=== PATIENT | male | born 1955 | race Caucasian/White ===

== ENCOUNTER → 2017-12-06 | Outpatient (CLI) | payer OTHER ==
--- NOTE | 2017-12-06 11:23 | US ---
EXAMINATION TYPE: US scrotum with doppler. Grayscale and color Doppler Duplex imaging performed of t tom scrotum. DATE OF EXAM: 12/06/2017 COMPARISON: NONE CLINICAL HISTORY: N50.9 Left testicular mass. EXAM MEASUREMENTS: TESTICLES: Right Testicle: 3.7 x 2.1 x 2.9 cm Left Testicle: 4.2 x 1.8 x 3.1 cm EPIDIDYMIS HEAD: Right Epididymis: 0.8 x 0.8 cm. Left Epididymis: not definitely seen cm. In area of left epi head there is a complex multiloculated cystic area measuring 3.1 x 2.2 x 2.9 cm Doppler performed to assess for testicular vascularity; good bilateral color flow and waveforms are s een. There is no evidence of testicular torsion. Presence of hydroceles: small amount of fluid surrounding bilateral testicles. IMPRESSION: 1. Multiloculated 3.1 cm left epididymal cyst. 2. Small bilateral hydroceles.
== END | disposition home or self-care (01) ==
LOC: RADUSWWP 10:52
PROVIDERS: ATTEND Family Medicine
DX: N50.3 Cyst of epididymis (principal); N43.3 Hydrocele, unspecified
CPT/HCPCS: 76870; 93975

== ENCOUNTER → 2022-04-28 | Outpatient (CLI) | payer MEDICARE ==
--- NOTE | 2022-04-28 14:28 | CT ---
EXAMINATION TYPE: CT abdomen pelvis wo con DATE OF EXAM: 04/28/2022 COMPARISON: None HISTORY: 66-year-old male N20.0, flank pain, kidney stone CT DLP: 485.4 mGycm. Automated exposure control for dose reduction was used. TECHNIQUE: Contiguous axial scanning of the abdomen and pelvis without IV contrast. Coronal and sagit [place] reconstructions performed. FINDINGS: Heart normal size without pericardial effusion. RCA coronary artery calcifications are present. Lung bases are clear without pleural effusion. The liver is mildly enlarged 18.9 cm. Otherwise, noncontrast appearance shows no gross abnormality. Noncontrast appearance of the gallbladder, adrenal glands, spleen, and pancreas shows no gross abnorm ality. Bilateral parapelvic cysts are suggested measuring up to 2.3 cm. On the right, there is a subtle 1.0 cm cortical hypodensity at the medial upper to mid pole, too smal l for accurate CT characterization, likely a cyst. No renal calculi or hydronephrosis is seen. No dilated small bowel, free fluid, or free air. Mild atherosclerotic calcifications infrarenal abdominal aorta and iliac arteries. Mild anne mesentery centrally and in the left side of the abdomen along with a few borderline to mil dly enlarged mesenteric lymph nodes measuring up to 1.2 cm. Refer to coronal image 27. Mild stool burden. Distal sigmoid diverticulosis. No pericolonic inflammatory change. Appendix not di scretely visualized. Bladder partially distended. Numerous pelvic phleboliths. Prostate gland shows central calcifications and is enlarged at 5.1 cm wide. No abnormal fluid collection in the pelvis. Some curvilinear density just behind the deep left inguinal ring, possible previous inguinal mesh rep air. No abnormal fluid collection the pelvis or pelvic adenopathy. Bones: Mild degenerative change at both hips and both SI joints. Hypertrophic facet arthropathy throughout. Grade 1 retrolisthesis L1-L2 and L2-L3. Mild degenerative disc disease, greatest at T12-L1 with a disc bulge mildly narrowing the spinal canal. No osseous dest ructive process seen. IMPRESSION: 1. No nephrolithiasis or hydronephrosis. 2. A nonspecific 1.0 cm cortical lesion medial right kidney (probable cyst) and suspected underlying parapelvic cysts in both kidneys measuring up to 2.3 cm. Six-month follow-up CT to ensure stability and a benign etiology. 3. Anne mesentery centrally may and left side of the abdomen with some associated borderline to mil dly enlarged mesenteric lymph nodes measuring up to 1.2 cm. Correlate for possible mesenteric pannicu litis. This should also be reassessed in 6 months as early lymphoma can have a similar appearance. 4. Prostatomegaly at 5.1 cm wide. Query prior left inguinal mesh repair.
== END | disposition home or self-care (01) ==
LOC: RADCTMAIN 13:58
PROVIDERS: ATTEND Family Medicine
DX: N40.0 Benign prostatic hyperplasia without lower urinary tract symptoms (principal)
CPT/HCPCS: 74176; 93005

== ENCOUNTER → 2022-05-20 | Outpatient (CLI) | payer MEDICARE ==
--- NOTE | 2022-05-20 09:54 | CA ---
Transthoracic Echo Report Name: Harry Peacock Age: 66 Gender: M : 1955 Exam Date: 05/20/2022 08:29 Exam Location: [facility] Ht (in): 68 Wt (lb): 190 Ordering Physician: Say Durant MD Attending/Referring Phys: Say Durant MD Animal Cruelty Investigation Supervisor Parul Hutchinson SERJIO Procedure CPT: Indications: I20.9 ANGINA PECTORIS, UNSPECIFIED Cardiac Hx: No hx of cardiac disease. Technical Quality: Fair Contrast 1: Total Dose (mL): Contrast 2: Total Dose (mL): MEASUREMENTS (Male / Female) Normal Values 2D ECHO LV Diastolic Diameter PLAX 4.0 cm 4.2 - 5.9 / 3.9 - 5.3 cm LV Systolic Diameter PLAX 2.3 cm IVS Diastolic Thickness 1.0 cm 0.6 - 1.0 / 0.6 - 0.9 cm LVPW Diastolic Thickness 1.1 cm 0.6 - 1.0 / 0.6 - 0.9 cm LV Relative Wall Thickness 0.5 RV Internal Dim ED PLAX 1.8 cm LA Volume 42.8 cm??? 18 - 58 / 22 - 52 cm??? M-MODE Aortic Root Diameter MM 3.0 cm LA Systolic Diameter MM 3.8 cm LA Ao Ratio MM 1.3 MV E Point Septal Separation 0.8 cm AV Cusp Separation MM 1.8 cm DOPPLER AV Peak Velocity 153.7 cm/s AV Peak Gradient 9.5 mmHg AI Peak Velocity 458.8 cm/s AI Peak Gradient 84.2 mmHg AI Pressure Half Time 989.6 ms MV Area PHT 3.5 cm??? MR Peak Velocity 558.7 cm/s MR Peak Gradient 124.9 mmHg Mitral E Point Velocity 91.7 cm/s Mitral A Point Velocity 102.0 cm/s Mitral E to A Ratio 0.9 MV Deceleration Time 215.0 ms TR Peak Velocity 130.1 cm/s TR Peak Gradient 6.8 mmHg Right Ventricular Systolic Press 11.8 mmHg FINDINGS Left Ventricle Normal Left ventricular size, wall thickness, systolic function with no obvious regional wall motion abnormalities. Normal Left ventricular diastolic filling pattern. Left ventricular ejection fraction is estimated at 50-55 %. Right Ventricle The right ventricle is normal in size and function. Right Atrium The right atrium is normal in size. Left Atrium The left atrium is normal in size. Mitral Valve Structurally normal mitral valve without significant stenosis or prolapse. There is mild mitral regurgitation. Aortic Valve Focal thickening of the aortic valve cusps. There is mild aortic regurgitation. Tricuspid Valve Structurally normal tricuspid valve without significant stenosis. Pulmonary artery systolic pressure is normal. Trace tricuspid regurgitation. Pulmonic Valve Structurally normal pulmonic valve without significant stenosis. There is no pulmonic regurgitation. Pericardium Normal pericardium without effusion. Aorta Normal aortic root dimension. CONCLUSIONS Normal LV size and systolic function Previewed by: Dr. Jeremie Martinez MD (Electronically Signed) Final Date: 20 May 2022 09:53
--- NOTE | 2022-05-20 10:16 | P.PN ---
Progress Note - Text Patient is a 66 year old male, does not follow with a property utilization manager. His PCP is Dr. Durant. Patient with no significant past medical history, presented to the outpatient stress lab department today for a exercise Raciel Protocol stress test. Patient was seen prior to stress test, alert and oriented x 3, vital signs were stable. During stress test in stage 2 and stage 3 patient began to have midsternal chest pain and heaviness. He had ST changes on his EKG revealing significant ST depression in inferior and anterior leads V2-V6. Test was stopped and patient had 4/10 chest heaviness. His chest pain resolved after resting. Results reviewed with property utilization manager, Dr. Martinez. Recommended patient be admitted and have further evaluation. Results of stress test, admission to hospital and cardiac catheterization were discussed with the patient. Patient very adamant on not being admitted to the hospital. Discussed the risks with the patient if he is not admitted and evaluated. The patient has indicated understanding and acceptance of the risks and does not want to be admitted at this time. Recommend follow up with Dr. Durant as soon as possible.
--- NOTE | 2022-05-20 11:20 | CA ---
Exercise Stress Test Report Name: Harry Peacock Exam Date: 05/20/2022 09:29 Exam Location: [facility] Ht (in): 68 Wt (lb): 190 BSA: 2.00 Ordering Phys: Say Durant MD Referring Phys: Say Durant MD Technologist: Shailesh Powell Age: 66 Gender: M : 1955 Procedure CPT: Indications: I20.9 ANGINA PECTORIS, UNSPECIFIED ICD-10 Codes: Patient History: Chest Heavyness Medications: none Meds past 24 hrs: Pretest Chest Pain: STRESS TEST Raciel Protocol Exercise Duration (min:sec): 07:[address] Depressions (mm): Angina Score: Jean-Baptiste Score: Resting HR (bpm): 64 Peak HR (bpm): 136 Resting BP (mmHg): 155 / 86 Peak BP (mmHg): 182 / 100 MPHR: 154 Target HR: 131 % MPHR: 88 METS: 10.3 Total Dose: Peak Dose: Atropine: Double Product: 74650 BP Response: Stress Termination: Reached target heart rate /chest heavyness Stress Symptoms: Chest heavyness (severity 4) Stress Summary: ECG ANALYSIS Resting ECG: Stress ECG: CONCLUSIONS Baseline heart rate 64 beats a minute, Baseline blood pressure 155/86. His mercury Baseline creatinine EKG showed sinus rhythm with normal ST segments Patient exercised on a Raciel protocol for 7 minutes 50 seconds achieving a peak heart rate 136 beats a minute Blood pressure 181/99 mmHg He complained of chest heaviness This is associated with ST depression with T-wave inversions inferolaterally consistent with an ischemic response Impression Abnormal stress test with an ischemic ecg response and typical symptoms Dr. Jeremie Martinez MD (Electronically Signed) Final Date: 20 May 2022 11:19
== END | disposition home or self-care (01) ==
LOC: RADECHMAIN 08:15
PROVIDERS: ATTEND Family Medicine
DX: I08.3 Combined rheumatic disorders of mitral, aortic and tricuspid valves (principal); R94.39 Abnormal result of other cardiovascular function study
CPT/HCPCS: 93017; 93306

== ENCOUNTER 2022-06-16 05:58 | Day surgery (SDC) | payer MEDICARE ==
[2022-06-16] MEDS ORDERED: NITROGLYCERIN SL TABS 0.4 MG TAB SUBLINGUAL PRN (06:07)
[2022-06-16] MEDS ORDERED: ALPRAZolam 0.25 MG TAB PO PRN (06:07)
[2022-06-16] MEDS ORDERED: SODIUM CHLORIDE 0.9% 1,000 ML in EMPTY BAG 1 BAG IV SCH (06:07)
[2022-06-16] MEDS ORDERED: ALPRAZolam 0.5 MG TAB PO PRN (06:07)
[2022-06-16 06:21] VITALS: RESP 18; TEMP 97
[2022-06-16 06:29] LABS: Basophils # (A) 0.1 k/uL (0-0.2); Basophils % (A) 1 %; Eosinophils # (A) 0.3 k/uL (0-0.7); Eosinophils % (A) 4 %; HCT 43.7 % (39.0-53.0); HGB 14.5 gm/dL (13.0-17.5); Lymphocytes # (A) 3.2 k/uL (1.0-4.8); Lymphocytes % (A) 37 %; MCH 30.5 pg (25.0-35.0); MCHC 33.1 g/dL (31.0-37.0); MCV 92.3 fL (80.0-100.0); Mean Platelet Volume 7.3; Monocytes # (A) 0.5 k/uL (0-1.0); Monocytes % (A) 6 %; Neutrophils # (A) 4.3 k/uL (1.3-7.7); Neutrophils % (A) 51 %; Platelet Count 303 k/uL (150-450); RBC 4.73 m/uL (4.30-5.90); RDW 13.4 % (11.5-15.5); WBC 8.6 k/uL (3.8-10.6)
[2022-06-16 06:37] LABS: African American GFR (CKD) >90 (>60 ml/min/1.73 sqM); Anion Gap 9 mmol/L; Blood Urea Nitrogen 20 mg/dL (9-20); Calcium 8.8 mg/dL (8.4-10.2); Carbon Dioxide 22 mmol/L (22-30); Glucose 115 mg/dL (74-99); Non-African American GFR(CKD) >90 (>60 ml/min/1.73 sqM)
[2022-06-16 06:38] LABS: Potassium 4.4 mmol/L (3.5-5.1); Sodium 136 mmol/L (137-145)
[2022-06-16 06:39] LABS: Chloride 105 mmol/L (98-107)
[2022-06-16] MEDS ORDERED: ASPIRIN 325 MG TAB PO ONE (07:00)
[2022-06-16] MEDS ORDERED: LIDOCAINE 1% INJ 10MG/ML (5 ML VIAL-PF) SQ ONE (07:47)
[2022-06-16] MEDS ORDERED: MIDAZOLAM 2 MG/2 ML VIAL IV ONE ×2 (07:47→07:54)
[2022-06-16] MEDS ORDERED: VERAPAMIL SYRINGE (5 MG/10 ML) INTRAARTER ONE (07:48)
[2022-06-16] MEDS ORDERED: HEPARIN SODIUM 1,000 UN/ML (10ML VL) IV ONE (07:50)
[2022-06-16] MEDS ORDERED: RX INFO: IV CONTRAST WAS GIVEN 1 EACH MISC MISCELLANE PRN (08:14)
[2022-06-16] MEDS ORDERED: IOPAMIDOL-370 125ML BTL INJ ONE (08:15)
[2022-06-16] MEDS ORDERED: SODIUM CHLORIDE 0.9% 1,000 ML IV SCH (08:15)
--- NOTE | 2022-06-16 08:19 | P.PCN ---
Date of Procedure: 06/16/22 Operative Findings: CARDIAC CATHETERIZATION PERFORMING PHYSICIAN: Cullen Swenson MD, RPVI PROCEDURE PERFORMED: 1. Selective right and left coronary angiogram 2. Left heart catheterization INDICATION: This is a 66-year-old gentleman with hypertension and dyslipidemia was experiencing recurrent episodes of chest discomfort for the last 6-8 weeks. He underwent an exercise treadmill stress test and that came in to be ischemic and concerning for severe underlying coronary artery disease. In light of.heart catheterization was advised COMPLICATION: None APPROACH: Right radial artery LEVEL OF SEDATION: Moderate with a sedation length of 15 minutes PROCEDURE DESCRIPTION: After obtaining an informed consent, the patient was brought to cardiac ammunition assembly ii laborer. Local anesthesia was performed using lidocaine subcutaneously. The right radial artery was cannulated using Seldinger technique, the guidewire passed easily, following that we advanced a 5-Malagasy sheath dilator assembly, the wire and dilator were removed and sheath was flushed. Following that, 2 mg of verapamil along with 5000 unit heparin were given. Selective right and left coronary angiogram using a 6-Malagasy JR4 and JL 3.5 catheters. Following that we did left heart catheterization using 6-Malagasy pigtail catheter. The procedure was completed there was no complication. SELECTIVE CORONARY ANGIOGRAM: The right coronary artery: Is a large caliber vessel and a dominant vessel. The RCA is calcified. The mid RCA has a lesion appeared to be in the range of 70%. The RCA distally appeared to have mild disease only and bifurcates into PDA and PLV branches. Left main: His extremely calcified with ostial lesion appeared to be in the range of 80- 90%. There was dampening in the pressure waveform upon engaging the left main using 5-Malagasy catheter. Bifurcates into the LCx and LAD The left circumflex: Is a large caliber vessel and nondominant vessel. The proximal LCx has intermediate to severe lesion and gives rises into an OM1 which is a large caliber vessel was proximal lesion appears to be in the range of 70%. Following 2 has another lesion appears to be in the range of 70-80% before the circumflex continues in the AV groove. The left anterior descending artery: It is a large caliber vessel. The proximal LAD appears to have mild disease only. The mid LAD has mild to moderate diffuse disease and gives rises into a diagonal branch which is a large caliber vessel which has also intermediate to severe disease. HEMODYNAMICS: The LVEDP was about 20 mmHg was no significant gradient across aortic valve CONCLUSION: 1. Severe disease involving the ostial left main which is heavily calcified 2. Severe disease involving the mid RCA which is also calcified 3. Elevated left-sided filling POSTPROCEDURE MANAGEMENT: Referred the patient further evaluation coronary artery bypass grafting
[2022-06-16 12:19] VITALS: BP 121/76; PULSE 53
== END 2022-06-16 13:10 | disposition home or self-care (01) ==
LOC: CATHCVL 05:58
PROVIDERS: ATTEND Internal Medicine Interventional Cardiology
DX: I25.10 Atherosclerotic heart disease of native coronary artery without angina pectoris (principal); I10 Essential (primary) hypertension; E78.5 Hyperlipidemia, unspecified; I08.0 Rheumatic disorders of both mitral and aortic valves; Z20.822 Contact with and (suspected) exposure to COVID-19; Z79.82 Long term (current) use of aspirin; Z79.899 Other long term (current) drug therapy
CPT/HCPCS: 93458; 80048; 85025; 87635; C1894; J2250; J2001; J1644; Q9967

== ENCOUNTER → 2022-07-14 | Outpatient (CLI) | payer MEDICARE ==
[2022-07-14 15:09] LABS: African American GFR (CKD) 86 (>60 ml/min/1.73 sqM); Anion Gap 14 mmol/L; Blood Urea Nitrogen 21 mg/dL (9-20); Carbon Dioxide 22 mmol/L (22-30); Chloride 102 mmol/L (98-107); Glucose 149 mg/dL (74-99); Magnesium 2.2 mg/dL (1.6-2.3); Non-African American GFR(CKD) 74 (>60 ml/min/1.73 sqM); Potassium 4.3 mmol/L (3.5-5.1); Sodium 138 mmol/L (137-145)
== END | disposition home or self-care (01) ==
LOC: LABWHC1 14:33
PROVIDERS: ATTEND Thoracic Surgery (Cardiothoracic Vascular Surgery)
DX: Z95.1 Presence of aortocoronary bypass graft (principal)
CPT/HCPCS: 36415; 80048; 83735

== ENCOUNTER → 2022-10-08 | Outpatient (CLI) | payer MEDICARE ==
--- NOTE | 2022-10-08 08:02 | CT ---
EXAMINATION TYPE: CT abdomen pelvis wo con CT DLP: 367.60 mGycm, Automated exposure control for dose reduction was used. DATE OF EXAM: 10/08/2022 6:59 AM COMPARISON: CT abdomen pelvis most recent from 04/28/2022. CLINICAL INDICATION:Male, 67 years old with history of N28.9 disorder of kidney and ureter. TECHNIQUE: Standard CT of the abdomen and pelvis without IV or oral contrast. Lack of IV or oral co ntrast limits evaluation of solid and hollow organ viscera. Coronal and sagittal reformats were perfo rmed. FINDINGS: LOWER CHEST: Lung bases are clear. RCA coronary artery calcifications. ABDOMEN LIVER: No focal lesion with the limitations of a noncontrast exam. GALLBLADDER AND BILE DUCTS: Unremarkable. PANCREAS: Unremarkable noncontrast appearance. SPLEEN: Unremarkable noncontrast appearance. ADRENAL GLANDS: Unremarkable noncontrast appearance. KIDNEYS AND URETERS: No evidence of hydronephrosis or renal calculus. Bilateral parapelvic cysts agai n suggested and unchanged from prior examination largest on the left measuring up to 2.4 cm. Subtle 1 cm cortical hypodensity in the medial upper to mid pole of the right kidney which is too small to ch aracterize but likely represents a cyst. PELVIS BLADDER: Underdistended, limiting evaluation. REPRODUCTIVE: Mildly prominent prostate gland measuring 4.6 cm in transverse dimension with central c oarse calcifications. ABDOMEN & PELVIS STOMACH AND BOWEL: Stomach and duodenum are unremarkable. Distal colonic diverticulosis without evide nce for acute diverticulitis. No evidence of bowel obstruction. PERITONEUM: No evidence of pneumoperitoneum or free fluid. Unchanged appearance of anne mesentery ce ntrally and in the left side of the abdomen. Stable mildly prominent mesenteric lymph nodes in this r egion. VASCULATURE: Mild atherosclerotic calcifications are present throughout the abdominal aorta and its b ranches. No evidence of aortic aneurysm. Pelvic phleboliths. MUSCULOSKELETAL: No acute osseous abnormalities. Mild degenerative changes of both hips and both SI j oints. Hypertrophic facet arthropathy throughout. Mild retrolisthesis of L1 on L2 and L2 on L3. Mild degenerative disc disease. LYMPH NODES: No gross evidence for lymphadenopathy. SOFT TISSUE/ABDOMINAL WALL: Small fat filled umbilical hernia. Able likely postsurgical changes from the left inguinal hernia mesh repair. IMPRESSION: 1. No hydronephrosis or renal calculi. 2. Stable nonspecific 1 cm cortical lesion medial aspect of the right kidney likely representing a cy st. Additional suspected underlying bilateral parapelvic renal cysts are stable. 3. Unchanged anne mesentery centrally and left side of the abdomen with some associated borderline p rominent mesenteric lymph nodes. This has a variety of etiologies including mesenteric panniculitis. This is more likely to be benign due to stability.
== END | disposition home or self-care (01) ==
LOC: RADCTMAIN 06:23
PROVIDERS: ATTEND Family Medicine
DX: K65.4 Sclerosing mesenteritis (principal); N28.89 Other specified disorders of kidney and ureter
CPT/HCPCS: 74176

== ENCOUNTER → 2024-09-22 | Outpatient (CLI) | payer MEDICARE ==
[2024-09-22 15:49] LABS: African American GFR (CKD) >90 (>60 ml/min/1.73 sqM); Blood Urea Nitrogen 20 mg/dL (9-20); Non-African American GFR(CKD) 84 (>60 ml/min/1.73 sqM)
--- NOTE | 2024-09-24 12:53 | CT ---
EXAMINATION TYPE: CT angio neck, without and with contrast DATE OF EXAM: 09/22/2024 COMPARISON: None HISTORY: 69-year-old male I65.29, carotid stenosis, dizziness, Investigating carotid stenosis, pt sta omid left side but wasn't sure TECHNIQUE: Contiguous axial scanning of the neck performed without and with IV Contrast, patient inje cted with 65ml mL of Isovue 370. Coronal/sagittal reconstructions performed. 3-D reconstructions gene rated on a dedicated independent workstation. CT DLP: 668.5 mGycm Automated exposure control for dose reduction was used. FINDINGS: Median sternotomy wires. Minimal atherosclerotic calcification and plaque at the aortic arch. Conventional arch vessel branchi ng anatomy. Atherosclerotic plaque results in mild stenosis proximal left subclavian artery There is a dominant right vertebral artery. At least moderate atherosclerotic narrowing at the origin of the left vertebral artery and mild at the right vertebral artery. Otherwise, both vertebral arter ies are patent throughout their course. The V4 segment left vertebral artery becomes even more hypoplastic after the PICA takeoff. The bilateral common carotid arteries are patent. Mild atherosclerotic plaque and calcification at the right carotid bifurcation with mild, 20% narrowi ng at the origin of the right ICA. Remainder of the right ICA is patent. [id number] atheroscler otic calcification within the intracranial right carotid siphon. There is severe scarring plaque and calcification involving the left carotid bulb contribute to a sev ere, greater than 90% stenosis to subtotal occlusion for a span of 1.8 cm. The subsequent left ICA is uniformly small in caliber suggesting string sign. Moderate atherosclerotic calcifications within the left carotid siphon. Moderate to severe narrowing of the supraclinoid left ICA to the level of the carotid terminus. Carotid terminus likely are receiv ing prominent supply from the communicating arteries. IMPRESSION: 1. EXTENSIVE ATHEROSCLEROTIC PLAQUE INVOLVING THE LEFT CAROTID BULB RESULTING IN A SEVERE, GREATER TH AN 90% STENOSIS VERSUS SUBTOTAL OCCLUSION FOR A SPAN OF 1.8 CM. THE SUBSEQUENT LEFT ICA IS UNIFORMLY SMALL IN CALIBER SUGGESTING STRING SIGN. 2. ADDITIONAL SEVERE NARROWING SUPRACLINOID LEFT ICA INCIDENTALLY SEEN. THE LEFT CAROTID TERMINUS SARUABH HERNANDEZ RECEIVES PROMINENT SUPPLY VIA THE COMMUNICATING ARTERIES. 3. Dominant right vertebral artery. At least moderate atherosclerotic narrowing at the origin of the nondominant left vertebral artery. 4. The V4 segment left vertebral artery becomes even more hypoplastic after the PICA takeoff. [facility], , 09/24/2024 12:51 PM
== END | disposition home or self-care (01) ==
LOC: RADCTMAIN 14:53
PROVIDERS: ATTEND Internal Medicine Interventional Cardiology
CPT/HCPCS: 36415; 70498; 82565; 84520